=== PATIENT | female | born 1955 | race Caucasian/White ===

== ENCOUNTER 2019-08-19 17:14 | Emergency (ER) | payer MEDICARE, BC ==
[~2019-08-19] VITALS: Ht 165.1 cm; Wt 65.8 kg
[2019-08-19 18:35] LABS: Albumin 3.2 g/dL (3.4-5.0); Calcium 8.3 mg/dL (8.5-10.1); Magnesium 2.3 mg/dL (1.6-2.6); Potassium 3.5 mmol/L (3.5-5.1)
[2019-08-19 18:37] LABS: BUN/Creatinine Ratio 15.2
[2019-08-19 18:40] LABS: Acetaminophen < 2.0 ug/mL (10-30); Bilirubin, Total 0.4 mg/dL (0.2-1.0); Salicylate 3.7 mg/dL (2.8-20.0); Total Protein 6.4 g/dL (6.4-8.2)
[2019-08-20 03:13] LABS: Basophils # (auto) 0.1 10 ^3/uL (0-0.2); Basophils % (auto) 1.4 % (0.0-2.0); Eosinophils # (auto) 0.1 10 ^3/uL (0-0.8); Eosinophils % (auto) 2.1 % (0.0-7.0); Hematocrit 37.4 % (36.0-46.0); Hemoglobin 12.5 g/dL (12.2-16.2); Lymphocytes # (auto) 1.6 10 ^3/uL (0.4-5.4); Lymphocytes % (auto) 30.7 % (10.0-50.0); Mean Corpuscular Hemoglobin 32.2 pg (28.0-32.0); Mean Corpuscular Hgb Conc. 33.5 g/dL (32.0-36.0); Mean Corpuscular Volume 95.9 fL (80.0-100.0); Monocytes # (auto) 0.5 10 ^3/uL (0-1.3); Neutrophils # (auto) 2.9 10 ^3/uL (1.6-8.6); Neutrophils % (auto) 55.8 % (37.0-80.0); Nucleated Red Blood Cells % 0.2 %; Platelet Count (auto) 179 10^3/uL (140-450); Red Cell Distribution Width 13.6 % (11.8-14.3); White Blood Cell 5.2 10^3/uL (4.4-10.8)
[2019-08-20 06:40] LABS: Urine Bacteria MOD /hpf (None Seen); Urine Blood Negative /uL (Negative); Urine Hyaline Cast FEW /lpf (0 - 2); Urine Mucus FEW (None Seen); Urine Specific Gravity 1.012 (1.001-1.035); Urine WBC 4 /hpf (0 - 5)
[2019-08-20 06:43] LABS: Alcohol, Urine < 3.0 mg/dL (0-10); Amphetamine Screen, Urine NEGATIVE (NEGATIVE); Barbiturate Scree,Urine NEGATIVE (NEGATIVE); Benzodiazephine Screen, Urine POSITIVE (NEGATIVE); Cannabinoid Screen, Urine POSITIVE (NEGATIVE); Cocaine Screen, Urine NEGATIVE (NEGATIVE); Opiate Scree,Urine NEGATIVE (NEGATIVE); Phencyclidine Screen, Urine NEGATIVE (NEGATIVE)
[2019-08-22 15:00] VITALS: BP 123/95
== END 2019-08-22 14:21 | disposition short-term general hospital (02) ==
LOC: ER 17:14 → EDBD 17:14 → ER 08-22 14:21
DX: T42.4X2A Poisoning by benzodiazepines, intentional self-harm, initial encounter (principal); R41.0 Disorientation, unspecified; F32.9 Major depressive disorder, single episode, unspecified; F41.9 Anxiety disorder, unspecified; F19.10 Other psychoactive substance abuse, uncomplicated; Z20.828 Contact with and (suspected) exposure to other viral communicable diseases; Y92.89 Other specified places as the place of occurrence of the external cause
CPT/HCPCS: 36415; 80053; 80307; 80320; 80329; 81001; 83735; 85025; 93005; 99285; C9803; U0003; 71046

== ENCOUNTER 2024-12-03 21:49 | Emergency (ER) | payer MEDICARE, BC ==
[~2024-12-03] VITALS: Ht 165.1 cm; Wt 89.7 kg
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
[2024-12-03] MEDS: SODIUM CHLORIDE 0.9% 1,000 ML IV ONE (22:30)
[2024-12-03] MEDS: TETANUS-DIPTH-ACEL PERTUSSIS 0.5ML SYR Tdap IM ONE (22:30)
[2024-12-03 23:11] VITALS: PULSE 56; RESP 20; O2SAT 97
[2024-12-04] MEDS: fentaNYL CITRATE 100 MCG/2 ML VL IV ONE (00:22)
[2024-12-04] MEDS: TETANUS-DIPTH-ACEL PERTUSSIS 0.5ML SYR Tdap IM ONE (00:32)
[2024-12-04 03:45] VITALS: BP 150/71; PULSE 60; RESP 20; TEMP 98.1; O2SAT 97
[2024-12-04] MEDS ORDERED: fentaNYL CITRATE 100 MCG/2 ML VL IV ONE (21:54)
[2024-12-20] MEDS ORDERED: fentaNYL CITRATE 100 MCG/2 ML VL IV ONE (08:00)
== END 2024-12-04 03:30 | disposition short-term general hospital (02) ==
LOC: ER 21:53
DX: T21.22XA Burn of second degree of abdominal wall, initial encounter (principal); T24.211A Burn of second degree of right thigh, initial encounter; T25.222A Burn of second degree of left foot, initial encounter; T31.0 Burns involving less than 10% of body surface; X08.8XXA Exposure to other specified smoke, fire and flames, initial encounter; Y93.89 Activity, other specified; Y92.89 Other specified places as the place of occurrence of the external cause; Y99.8 Other external cause status
CPT/HCPCS: 90471; 90715; 96361; 96374; 99285; J3010; J7030